=== PATIENT | male | born 1990 | race Caucasian/White ===

== ENCOUNTER 2016-06-24 08:36 | Emergency (ER) | payer SELFPAY ==
[2016-06-24 08:43] VITALS: BP 146/79
--- NOTE | 2016-06-24 10:12 | ED ---
Skin Complaint - HPI Summary HPI Summary: Patient has an area of irritation at the proximal end of a scar on his right forearm where he had a laceration repaired with deep absorbable and superficial stitches. He had the surface stitches removed weeks ago, and this new area appeared yesterday. He has not noticed fever, streaking, or drainage. There is a small scab over the pea size area. No known new trauma. - History of Current Complaint Chief Complaint: EDGeneral Time Seen by Provider: 06/24/16 09:03 Stated Complaint: RIGHT ARM INFECTION Hx Obtained From: Patient Onset/Duration: Started Days Ago - 1 Skin Exposure Onset/Duration: Days Ago - 1 Timing: Constant Onset Severity: Mild Current Severity: Mild Skin Location: Arm - right forearm Character: Pain, Redness - pea size Aggravating Symptom(s): Touch Alleviating Symptom(s): Nothing Associated Signs & Symptoms: Tenderness Related History: Trauma - suture placement in deep tissue. 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 hernia repair Infectious Disease History: No Infectious Disease History: Denies: Hx Clostridium Difficile, Hx Hepatitis, Hx Human Immunodeficiency Virus (HIV), Hx of Known/Suspected MRSA, Hx Shingles, Hx Tuberculosis, Hx Known/ Suspected VRE, Hx Known/Suspected VRSA, History Other Infectious Disease, Traveled Outside the [place] in Last 30 Days - Family History Known Family History: Positive: Cardiac Disease, Hypertension - Social History Occupation: Employed Part-time Lives: With Family Alcohol Use: None Substance Use Type: Reports: None Hx Tobacco Use: Yes Smoking Status (MU): Heavy Every Day Tobacco Smoker Type: Cigarettes Amount Used/How Often: 2 cigs /day Have You Smoked in the Last Year: Yes Cessation Counseling: Patient Advised to Stop Review of Systems Negative: Fever, Chills Negative: Myalgia, Decreased ROM, Edema Positive: Other - well healed scar with pea size area of redness with scab on proximal end of scar All Other Systems Reviewed And Are Negative: Yes Physical Exam Triage Information Reviewed: Yes Vital Signs On Initial Exam: Initial Vitals Temp Pulse Resp BP Pulse Ox 97.7 F 80 20 146/79 99 06/24/16 08:39 06/24/16 08:39 06/24/16 08:39 06/24/16 08:39 06/24/16 08:39 Vital Signs Reviewed: Yes Appearance: Positive: Well-Appearing, No Pain Distress, Well-Nourished Skin: Positive: Warm, Skin Color Reflects Adequate Perfusion, Dry, Tender - well healed scar with pea size area of redness with scab on proximal end of scar , Soft Head/Face: Positive: Normal Head/Face Inspection Eyes: Positive: EOMI, YOLI, Conjunctiva Clear ENT: Positive: Hearing grossly normal Respiratory/Lung Sounds: Positive: Breath Sounds Present Cardiovascular: Positive: RRR Musculoskeletal: Positive: Strength/ROM Intact, Pain @ - well healed scar with pea size area of redness with scab on proximal end of scar that is mildly tender to palp.. Negative: Edema Right Neurological: Positive: Sensory/Motor Intact, Alert, Oriented to Person Place, Time, NV Bundle Intact Distally Psychiatric: Positive: Affect/Mood Appropriate AVPU Assessment: Alert Diagnostics - Vital Signs Vital Signs Temp Pulse Resp BP Pulse Ox 06/24/16 08:39 97.7 F 80 20 146/79 99 - Laboratory Lab Statement: Any lab studies that have been ordered have been reviewed, and results considered in the medical decision making process. Course/Dx - Differential Diagnoses - Skin Complaint Differential Diagnoses: Abscess, Cellulitis, Contact Dermatitis, Drug Rash, Foreign Body, Local Allergic Reaction, MRSA, Urticaria - Diagnoses Provider Diagnoses: Postoperative stitch abscess Discharge - Discharge Plan Condition: Stable Disposition: HOME Additional Instructions: You appear to be having a reaction to one of the deep stitches from your laceration repair. Use soap and water to clean the area and apply antibiotic ointment for the next two days. Leave the area open to air otherwise. Use ibuprofen for pain control. Return to the emergency department if you notice increased redness or red streaking up your arm, and/or develop a temperature of 100.4 or greater, or if your symptoms worsen in general.
== END 2016-06-24 11:28 | disposition home or self-care (01) ==
LOC: ED 08:36
DX: L76.82 Other postprocedural complications of skin and subcutaneous tissue (principal); T81.4XXA Infection following a procedure, initial encounter; L02.413 Cutaneous abscess of right upper limb; F17.210 Nicotine dependence, cigarettes, uncomplicated
CPT/HCPCS: 99281

== ENCOUNTER 2017-04-27 11:54 | Emergency (ER) | payer BC ==
--- NOTE | 2017-04-27 12:36 | RAD ---
HISTORY: Right wrist pain COMPARISONS: Right hand dated May 20, 2010 VIEWS: 3, Frontal, lateral, and oblique views of the right wrist FINDINGS: BONE DENSITY: Normal. BONES: There is no displaced fracture. JOINTS: There is no arthropathy. ALIGNMENT: There is no dislocation. SOFT TISSUES: Unremarkable. OTHER FINDINGS: None. IMPRESSION: NO ACUTE OSSEOUS INJURY. IF SYMPTOMS PERSIST, RECOMMEND REPEAT IMAGING.
--- NOTE | 2017-04-27 12:43 | ED ---
Upper Extremity Pain - HPI Summary HPI Summary: 26M presents with right wrist pain that has been gradually getting worst. He states he had a laceration to right forearm many months ago that started the issues with his wrist. He went to PT which seemed to help. He denies any new injury. He denies any swelling to joint. Pain is greatest on volvar and ulnar aspect of right wrist. He admits to occasionally numbness and tingling. He has ROM of his wrist it just hurts. He has been taking ibuprofen for pain. He is right handed. He works in a machine shop. 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 hernia repair Infectious Disease History: No Infectious Disease History: Denies: Hx Clostridium Difficile, Hx Hepatitis, Hx Human Immunodeficiency Virus (HIV), Hx of Known/Suspected MRSA, Hx Shingles, Hx Tuberculosis, Hx Known/ Suspected VRE, Hx Known/Suspected VRSA, History Other Infectious Disease, Traveled Outside the [place] in Last 30 Days - Family History Known Family History: Positive: Cardiac Disease, Hypertension - Social History Alcohol Use: Occasionally Substance Use Type: Reports: None Hx Tobacco Use: Yes Smoking Status (MU): Light Every Day Tobacco Smoker Type: Cigarettes Amount Used/How Often: 2 cigs /day Have You Smoked in the Last Year: Yes Review of Systems Negative: Fever Negative: Chest Pain Negative: Shortness Of Breath Positive: Myalgia - right wrist pain All Other Systems Reviewed And Are Negative: Yes Physical Exam Triage Information Reviewed: Yes Vital Signs On Initial Exam: Initial Vitals Temp Pulse Resp BP Pulse Ox 97.3 F 70 16 144/80 96 04/27/17 11:57 04/27/17 11:57 04/27/17 11:57 04/27/17 11:57 04/27/17 11:57 Vital Signs Reviewed: Yes Appearance: Positive: Well-Appearing Skin: Positive: Warm, Dry Head/Face: Positive: Normal Head/Face Inspection Eyes: Positive: Normal, Conjunctiva Clear Respiratory/Lung Sounds: Positive: Clear to Auscultation, Breath Sounds Present Cardiovascular: Positive: Normal, RRR Musculoskeletal: Positive: Limited @ - right wrist, Other - good pulses, capillary refill<2 secs, able to oppose all finger, pos tinels test, good cover maker strength, neg John. Negative: Edema Right Neurological: Positive: Normal Psychiatric: Positive: Normal - Светлана Coma Scale Coma Scale Total: 15 Diagnostics - Vital Signs Vital Signs Temp Pulse Resp BP Pulse Ox 04/27/17 11:57 97.3 F 70 16 144/80 96 - Laboratory Lab Statement: Any lab studies that have been ordered have been reviewed, and results considered in the medical decision making process. - Radiology wrist Xray Interpretation: No Acute Changes Radiology Interpretation Completed By: Radiologist Course/Dx - Course Course Of Treatment: 26M presents with right wrist pain that has been gradually getting worst. He states he had a laceration to right forearm many months ago that started the issues with his wrist. He went to PT which seemed to help. He denies any new injury. He denies any swelling to joint. Pain is greatest on volvar and ulnar aspect of right wrist. He admits to occasionally numbness and tingling. He has ROM of his wrist it just hurts. He has been taking ibuprofen for pain. on exam good cover maker strength, neurovascular intact. pos tinels test. able to oppose all finger. neg John. wrist xray normal. will treat with cock up splint for possible carpel tunnel. gave referral for ortho. patient understand and agrees with plan. - Diagnoses Differential Diagnosis/HQI/PQRI: Positive: Fracture (Closed), Strain, Sprain Provider Diagnoses: Right wrist pain Discharge - Discharge Plan Condition: Good Disposition: HOME Patient Education Materials: Wrist Sprain (ED) Forms: *Work Release Referrals: [facility] [Outside] Rosa Muñoz MD [Medical Doctor] - Additional Instructions: Your symptoms seem to be consistent with carpel tunnel Keep splint on area Follow up with ortho Take Tylenol or ibuprofen every 6 hours Ice Return to ED if develop any new or worsening symptoms
[2017-04-27 13:20] VITALS: BP 141/82
== END 2017-04-27 13:19 | disposition home or self-care (01) ==
LOC: ED 11:54
DX: M25.531 Pain in right wrist (principal); F17.210 Nicotine dependence, cigarettes, uncomplicated
CPT/HCPCS: 99282

== ENCOUNTER 2017-08-29 07:02 | Emergency (ER) | payer BC ==
[2017-08-29] MEDS ORDERED: Ketorolac INJ* 60 MG/2 ML VIAL IM ONE (07:48)
[2017-08-29] MEDS ORDERED: Ketorolac INJ* 60 MG/2 ML VIAL ONE (07:50)
--- NOTE | 2017-08-29 08:22 | RAD ---
INDICATION: Left shoulder injury. TECHNIQUE: 4 views of the left shoulder were obtained. FINDINGS: The bones are in normal alignment. There is a small calcific density adjacent to the inferior glenoid process of the scapula. No other focal osseous abnormalities are seen. Joint spaces appear maintained. IMPRESSION: SMALL CALCIFIC DENSITY ADJACENT TO THE INFERIOR GLENOID PROCESS OF THE SCAPULA POSSIBLY REPRESENTING A SMALL FRACTURE FRAGMENT, AGE INDETERMINATE.
[2017-08-29 08:37] VITALS: BP 149/95
--- NOTE | 2017-08-29 08:44 | ED ---
Mauricio Pitts Stephanie, scribed for Marquis Welch MD on 08/29/17 at 0819 . Upper Extremity Pain - HPI Summary HPI Summary: The pt is a 27 y/o M presenting to the ED with c/o L shoulder pain that began on 08/27/17. The pt states he believed the pain was due to soreness after exercise however, the pain has progressively gotten worse since 08/27/17. Symptoms include limited ROM in L arm, pain in L shoulder joint and L clavicle. He states he attempted to treat his pain with ice but his pain persists. - History of Current Complaint Chief Complaint: EDExtremityUpper Stated Complaint: LT SHOULDER INJURY Time Seen by Provider: 08/29/17 07:46 Hx Obtained From: Patient Mechanism Of Injury: Other - exercise Onset/Duration: Started Days Ago - 2, Still Present, Worse Since - progressively became worse since onset Timing: Constant Severity Currently: Moderate Pain Location: Collar - L, Shoulder - L, Arm - L along bicep and tricep Aggravating Factor(s): Movement Alleviating Factor(s): Nothing Associated Signs & Symptoms: Positive: Other - limited ROM in L arm, pain in L shoulder joint and L clavicle - Allergies/Home Medications Allergies/Adverse Reactions: Allergies Allergy/AdvReac Type Severity Reaction Status Date / Time bee venom protein (honey bee) Allergy Severe Anaphylatic Verified 08/29/17 07:09 Shock nuts Allergy Severe Airway Uncoded 08/29/17 07:09 Obstruction PMH/Surg Hx/FS Hx/Imm Hx Endocrine/Hematology History: Denies: Hx Diabetes, Hx Thyroid Disease Cardiovascular History: 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 hernia repair Infectious Disease History: No Infectious Disease History: Denies: Hx Clostridium Difficile, Hx Hepatitis, Hx Human Immunodeficiency Virus (HIV), Hx of Known/Suspected MRSA, Hx Shingles, Hx Tuberculosis, Hx Known/ Suspected VRE, Hx Known/Suspected VRSA, History Other Infectious Disease, Traveled Outside the [place] in Last 30 Days - Family History Known Family History: Positive: Cardiac Disease, Hypertension - Social History Occupation: Employed Part-time Lives: Alone Alcohol Use: Occasionally Substance Use Type: Reports: None Hx Tobacco Use: Yes Smoking Status (MU): Light Every Day Tobacco Smoker Type: Cigarettes Amount Used/How Often: 2 cigs /day Have You Smoked in the Last Year: Yes Review of Systems Negative: Fever Positive: Other - L UE pain at shoulder, L clavacle pain All Other Systems Reviewed And Are Negative: Yes Physical Exam - Summary Physical Exam Summary: General: well-appearing, no pain distress Skin: warm, color reflects adequate perfusion, dry Head: normal Eyes: EOMI, YOLI ENT: normal Neck: supple, nontender Respiratory: CTA, breath sounds present Cardiovascular: RRR Abdomen: soft, nontender Bowel: present Musculoskeletal: tender to palpation in L shoulder joint. Pt declines ROM secondary to pain in joint. Scapula nontender. Elbow, wrist, and fingers are normal. Neurological: normal, sensory/motor intact, A&O x3 Psychological: affect/mood appropriate Triage Information Reviewed: Yes Vital Signs On Initial Exam: Initial Vitals Temp Pulse Resp BP Pulse Ox 96.3 F 78 16 160/94 97 08/29/17 07:09 08/29/17 07:09 08/29/17 07:09 08/29/17 07:09 08/29/17 07:09 Vital Signs Reviewed: Yes Diagnostics - Vital Signs Vital Signs Temp Pulse Resp BP Pulse Ox 08/29/17 07:09 96.3 F 78 16 160/94 97 - Laboratory Lab Statement: Any lab studies that have been ordered have been reviewed, and results considered in the medical decision making process. - Radiology Shoulder XRay Xray Interpretation: Positive (See Comments) Radiology Interpretation Completed By: Radiologist - SMALL CALCIFIC DENSITY ADJACENT TO THE INFERIOR GLENOID PROCESS OF THE SCAPULA POSSIBLY REPRESENTING A SMALL FRACTURE FRAGMENT, AGE INDETERMINATE. Re-Evaluation - Re-Evaluation First Eval Re-Evaluation Time: 08:19 Change: Unchanged - ED physician discusses pain management and discharge plan with the pt. The pt understands and agrees with discharge. Course/Dx - Course Course Of Treatment: BP noted and advised to follow up with PCP. DISCUSSED X- RAY RESULTS WITH THE PATIENT. DISCUSSED MAINTAINING ROM. F/U PMD/SPORTS MEDICINE. RETURN IF WORSE. - Diagnoses Provider Diagnoses: Elevated blood pressure reading without diagnosis of hypertension, Left shoulder pain, Injury of left rotator cuff Discharge - Sign-Out/Discharge Documenting (check all that apply): Discharge - Discharge Plan Condition: Stable Disposition: HOME Prescriptions: HYDROcodone/ACETAMIN 5-325 MG* [[place] 5-325 TAB*] 1 tab PO Q4H PRN #30 tab MDD 6 PRN Reason: Pain Patient Education Materials: Rotator Cuff Injury (ED), Shoulder Sprain (ED) Referrals: [facility] [Outside] [facility] [Outside] Additional Instructions: FOLLOW UP WITH YOUR PRIMARY CARE DOCTOR AND SPORTS MEDICINE. PERFORM THE RANGE OF MOTION EXERCISES DIRECTED TO HELP AVOID A FROZEN SHOULDER. RETURN TO THE EMERGENCY DEPARTMENT FOR ANY WORSENING OF YOUR CONDITION OR QUESTIONS OR CONCERNS. YOUR BLOOD PRESSURE WAS ELEVATED TODAY; FOLLOW UP WITH YOUR PRIMARY CARE DOCTOR WITHIN ONE WEEK. - Billing Disposition and Condition Condition: STABLE Disposition: HOME The documentation as recorded by the Mauricio haley Stephanie accurately reflects the service I personally performed and the decisions made by me, Marquis Welch MD.
== END 2017-08-29 08:38 | disposition home or self-care (01) ==
LOC: ED 07:02
DX: S49.92XA Unspecified injury of left shoulder and upper arm, initial encounter (principal); M25.512 Pain in left shoulder; F17.210 Nicotine dependence, cigarettes, uncomplicated; R03.0 Elevated blood-pressure reading, without diagnosis of hypertension; X58.XXXA Exposure to other specified factors, initial encounter; Y92.9 Unspecified place or not applicable
CPT/HCPCS: 96372; 96374; 99282; J1885

== ENCOUNTER 2018-04-17 09:03 | Emergency (ER) | payer BC ==
[2018-04-17 09:10] VITALS: BP 143/85
--- NOTE | 2018-04-17 10:00 | UC ---
Ear Complaint HPI - HPI Summary HPI Summary: 27 yo male presents with right ear pain, sinus pain/pressure/congestion, and intermittently productive cough for the last 3-4 days getting progressively worse. He has been taking ibuprofen and mucinex OTC with mild relief for a short time. He denies fever, chills, SOB. - History of Current Complaint Chief Complaint: UCRespiratory Stated Complaint: EAR PAIN Time Seen by Provider: 04/17/18 09:54 Hx Obtained From: Patient Onset/Duration: Gradual Onset Severity Initially: Moderate Severity Currently: Severe Pain Intensity: 7 Pain Scale Used: 0-10 Numeric - Allergies/Home Medications Allergies/Adverse Reactions: Allergies Allergy/AdvReac Type Severity Reaction Status Date / Time bee venom protein (honey bee) Allergy Severe Anaphylatic Verified 04/17/18 09:11 Shock nuts Allergy Severe Airway Uncoded 04/17/18 09:11 Obstruction PMH/Surg Hx/FS Hx/Imm Hx - Additional Past Medical History Additional PMH: None - Surgical History Surgical History: Yes Surgery Procedure, Year, and Place: knee surgery. hernia repair - Family History Known Family History: Positive: Cardiac Disease, Hypertension - Social History Occupation: Employed Full-time Lives: With Family Alcohol Use: Occasionally Substance Use Type: None Smoking Status (MU): Light Every Day Tobacco Smoker Type: Cigarettes Amount Used/How Often: 2 cigs /day Have You Smoked in the Last Year: Yes When Did the Patient Quit Smoking/Using Tobacco: 2 months ago Household Exposure Type: Cigarettes - Immunization History Most Recent Influenza Vaccination: utd Most Recent Tetanus Shot: utd Most Recent Pneumonia Vaccination: never Review of Systems Constitutional: Negative Skin: Negative Eyes: Negative ENT: Ear Ache, Sinus Congestion, Sinus Pain/Tenderness Respiratory: Cough Cardiovascular: Negative Gastrointestinal: Negative Neurovascular: Negative Neurological: Negative Psychological: Negative All Other Systems Reviewed And Are Negative: Yes Physical Exam - Summary Physical Exam Summary: GENERAL: NAD. WDWN. No pain distress. SKIN: No rashes, sores, lesions, or open wounds. HEENT: Head: AT/NC Eyes: EOM intact. Conjunctiva clear without inflammation or discharge. Ears: Hearing grossly normal. RIGHT TM with mild erythema and bulging. No canal edema or drainage. Nose: Nasal mucosa mildly swollen and erythematous with yellow discharge. TTP maxillary and frontal sinus. Positive post nasal drip Throat: Posterior oropharynx without exudates, erythema, or tonsillar enlargement. Uvula midline. NECK: Supple. Nontender. No lymphadenopathy. CHEST: Mild wheezing throughout. No accessory muscle use. Breathing comfortably and in no distress. CV: RRR. Without m/r/g. Pulses intact. NEURO: Alert. PSYCH: Age appropriate behavior. Triage Information Reviewed: Yes Vital Signs: Initial Vital Signs Temp 98.1 F 04/17/18 09:07 Pulse 78 04/17/18 09:07 Resp 18 04/17/18 09:07 BP 143/85 04/17/18 09:07 Pulse Ox 100 04/17/18 09:07 Vital Signs Reviewed: Yes Ear Complaint Course/Dx - Course Course Of Treatment: Sinusitis. Right otitis media. Bronchitis. Will start him with Augmentin and advised to continue ibuprofen and mucinex and to cut back on smoking. - Differential Dx/Diagnosis Provider Diagnoses: Sinusitis. Right otitis media. Bronchitis. Discharge - Sign-Out/Discharge Documenting (check all that apply): Patient Departure All imaging exams completed and their final reports reviewed: No Studies - Discharge Plan Condition: Stable Disposition: HOME Prescriptions: Amoxicillin/Clavulanate TAB* [Augmentin TAB 875*] 875 mg PO BID #20 tab Patient Education Materials: Sinusitis (ED) Forms: *Work Release Referrals: No Primary Care Phys,NOPCP [Primary Care Provider] - Additional Instructions: If you develop a fever, shortness of breath, chest pain, new or worsening symptoms - please call your PCP or go to the ED. Your blood pressure was high at todays visit. Please see your primary provider within 4 weeks for recheck and re-evaluation. - Billing Disposition and Condition Condition: STABLE Disposition: Home
== END 2018-04-17 10:11 | disposition home or self-care (01) ==
LOC: UCEAST 09:03
DX: H66.91 Otitis media, unspecified, right ear (principal); J40 Bronchitis, not specified as acute or chronic; J32.9 Chronic sinusitis, unspecified; F17.210 Nicotine dependence, cigarettes, uncomplicated; Z91.030 Bee allergy status; Z91.018 Allergy to other foods
CPT/HCPCS: 99212; G0463

== ENCOUNTER 2018-06-18 07:12 | Emergency (ER) | payer BC ==
[2018-06-18 07:22] VITALS: BP 151/95
--- NOTE | 2018-06-18 07:46 | UC ---
Dental HPI - HPI Summary HPI Summary: 27-year-old male comes in to clinic today with a chief complaint of dental injury. 2 days ago he was holding his son when his son swung his head back and struck him in the lower jaw. He had pain right away from the lower front teeth. The last 2 days there is been more gingival swelling in the pains getting worse. He is not worried that his jaw is broken as the rest of his jaw does not hurt is just where the teeth are in the front lower area. He has been using some mouth wash which helps some. Chewing makes it worse. One of the teeth feels a little loose. - History of Current Complaint Chief Complaint: UCDentalProblem Stated Complaint: MOUTH INJURY Time Seen by Provider: 06/18/18 07:34 Pain Intensity: 7 - Allergies/Home Medications Allergies/Adverse Reactions: Allergies Allergy/AdvReac Type Severity Reaction Status Date / Time bee venom protein (honey bee) Allergy Severe Anaphylatic Verified 06/18/18 07:22 Shock nuts Allergy Severe Airway Uncoded 06/18/18 07:22 Obstruction Home Medications: Home Medications Ibuprofen 600 mg PO ONCE PRN 06/18/18 [History Confirmed 06/18/18] PMH/Surg Hx/FS Hx/Imm Hx Previously Healthy: Yes - Surgical History Surgical History: Yes Surgery Procedure, Year, and Place: knee surgery. hernia repair. arm stitches - Family History Known Family History: Positive: Cardiac Disease, Hypertension - Social History Alcohol Use: Occasionally Substance Use Type: None Smoking Status (MU): Light Every Day Tobacco Smoker Type: Cigarettes Amount Used/How Often: 4 cigs /day Have You Smoked in the Last Year: Yes When Did the Patient Quit Smoking/Using Tobacco: 2 months ago Household Exposure Type: Cigarettes - Immunization History Most Recent Influenza Vaccination: utd Most Recent Tetanus Shot: utd Most Recent Pneumonia Vaccination: never Review of Systems All Other Systems Reviewed And Are Negative: Yes Constitutional: Positive: Negative Skin: Positive: Negative Eyes: Positive: Negative ENT: Positive: Dental Pain. Negative: Sore Throat Respiratory: Positive: Negative Cardiovascular: Positive: Negative Gastrointestinal: Positive: Negative Motor: Positive: Negative Neurovascular: Positive: Negative Musculoskeletal: Positive: Negative Neurological: Positive: Negative Psychological: Positive: Negative Is Patient Immunocompromised?: No Physical Exam Triage Information Reviewed: Yes Appearance: Well-Appearing, Well-Nourished, Pain Distress - mild Vital Signs: Initial Vital Signs Temp 98.8 F 06/18/18 07:18 Pulse 64 06/18/18 07:18 Resp 18 06/18/18 07:18 BP 151/95 06/18/18 07:18 Pulse Ox 99 06/18/18 07:18 Vital Signs Reviewed: Yes Eye Exam: Normal Eyes: Positive: Conjunctiva Clear ENT: Positive: Pharynx normal. Negative: Nasal congestion, Nasal drainage Dental: Positive: Other: - On examination the patient's mandible is nontender to palpation. Good good range of motion of the jaw. His lower anterior incisors have gingival swelling at the bases. This area is tender to palpation. The tongue is intact with full range of motion. No obvious tongue injury. Oropharynx open. Neck exam: Normal Neck: Positive: Supple Respiratory: Positive: No respiratory distress Musculoskeletal Exam: Normal Musculoskeletal: Positive: Strength Intact, ROM Intact Neurological Exam: Normal Neurological: Positive: Alert, Muscle Tone Normal Psychological Exam: Normal Psychological: Positive: Age Appropriate Behavior Skin Exam: Normal Dental Complaint Course/Dx - Course Course Of Treatment: Based on examination and history I am not concerned about a fractured mandible. He does have some dental injury and gingival swelling. There may be some infection complicating the picture. I encouraged further mouth washing and Orajel. Started on antibiotic and pain medications. Follow- up with his dentist. Reevaluation if not improved or worsening. - Differential Dx/Diagnosis Provider Diagnosis: Dental trauma Discharge - Sign-Out/Discharge Documenting (check all that apply): Patient Departure All imaging exams completed and their final reports reviewed: No Studies - Discharge Plan Condition: Stable Disposition: HOME Prescriptions: Amoxicillin/Clavulanate TAB* [Augmentin TAB 875*] 875 mg PO BID #20 tab HYDROcodone/ACETAMIN 5-325 MG* [[place] 5-325 TAB*] 1 tab PO Q4H PRN #20 tab MDD 6 PRN Reason: Pain Patient Education Materials: Acute Dental Trauma (ED), Toothache (ED) Forms: *Work Release Referrals: [facility] [place] [facility] REFERRAL [Outside] Additional Instructions: FOLLOW UP WITH YOUR DOCTOR IF NOT COMPLETELY IMPROVED. GET RECHECKED FOR ANY WORSENING OF YOUR CONDITION OR QUESTIONS OR CONCERNS. - Billing Disposition and Condition Condition: STABLE Disposition: Home
== END 2018-06-18 07:53 | disposition home or self-care (01) ==
LOC: UCEAST 07:12
DX: S09.93XA Unspecified injury of face, initial encounter (principal); W50.0XXA Accidental hit or strike by another person, initial encounter; Y93.89 Activity, other specified; Y92.9 Unspecified place or not applicable; F17.210 Nicotine dependence, cigarettes, uncomplicated
CPT/HCPCS: 99212; G0463

== ENCOUNTER 2018-09-13 09:20 | Emergency (ER) | payer BC ==
[2018-09-13 09:32] VITALS: BP 135/91
--- NOTE | 2018-09-13 09:56 | UC ---
Abdominal Pain Male HPI - HPI Summary HPI Summary: abdominal pain / cramps x 1 day pain is diffused, 3 out of 10 , no radiation + nausea , vomiting, no diarrhea, no constipation , no urinary sx no fever, + chills nasal congestion, cough , pnd , no sore throat - History of Current Complaint Chief Complaint: UCGeneralIllness Stated Complaint: SORE THROAT HEAD CONGESTION VOMITING Time Seen by Provider: 09/13/18 09:42 Hx Obtained From: Patient Onset/Duration: Gradual Onset, Lasting Days - 1, Still Present Timing: Constant Severity Initially: Moderate Severity Currently: Moderate Pain Intensity: 0 Location: Diffuse Radiates: No Character: Cramping Aggravating Factor(s): Nothing Alleviating Factor(s): Nothing Associated Signs And Symptoms: Positive: Cough, Nausea, Vomiting. Negative: Diaphoresis, Fever, Chest Pain, Dizzy, Back Pain, Constipation, Blood in Stool, Urinary Symptoms, Decreased Appetite, Diarrhea - Allergies/Home Medications Allergies/Adverse Reactions: Allergies Allergy/AdvReac Type Severity Reaction Status Date / Time bee venom protein (honey bee) Allergy Severe Anaphylatic Verified 09/13/18 09:26 Shock nuts Allergy Severe Airway Uncoded 09/13/18 09:26 Obstruction Home Medications: Home Medications Ibuprofen TAB* [Motrin TAB* 600 MG] 600 mg PO ONCE PRN 09/13/18 [History Confirmed 09/13/18] PMH/Surg Hx/FS Hx/Imm Hx Previously Healthy: Yes - Surgical History Surgical History: Yes Surgery Procedure, Year, and Place: R knee surgery. inguinal hernia repair. arm stitches (60) - Family History Known Family History: Positive: Cardiac Disease, Hypertension - Social History Alcohol Use: Rare Substance Use Type: None Smoking Status (MU): Light Every Day Tobacco Smoker Type: Cigarettes Amount Used/How Often: 4 cigs /day Have You Smoked in the Last Year: Yes When Did the Patient Quit Smoking/Using Tobacco: 2 months ago Household Exposure Type: Cigarettes - Immunization History Most Recent Influenza Vaccination: utd Most Recent Tetanus Shot: utd Most Recent Pneumonia Vaccination: never Review of Systems All Other Systems Reviewed And Are Negative: Yes Constitutional: Positive: Chills Skin: Positive: Negative Eyes: Positive: Negative ENT: Positive: Nasal Discharge Respiratory: Positive: Cough Cardiovascular: Positive: Negative Gastrointestinal: Positive: Abdominal Pain, Vomiting, Nausea. Negative: Diarrhea Genitourinary: Positive: Negative Is Patient Immunocompromised?: No Physical Exam Triage Information Reviewed: Yes Appearance: Well-Appearing, No Pain Distress, Well-Nourished Vital Signs: Initial Vital Signs Temp 98 F 09/13/18 09:28 Pulse 89 09/13/18 09:28 Resp 16 09/13/18 09:28 BP 135/91 09/13/18 09:28 Pulse Ox 99 09/13/18 09:28 Vital Signs Reviewed: Yes Eye Exam: Normal Eyes: Positive: Conjunctiva Clear ENT: Positive: Normal ENT inspection, Hearing grossly normal, Pharyngeal erythema, Nasal congestion, Nasal drainage, TMs normal. Negative: TM bulging, TM dull, TM red, Tonsillar swelling, Tonsillar exudate Neck exam: Normal Neck: Positive: Supple, Nontender, No Lymphadenopathy Respiratory: Positive: Chest non-tender, Lungs clear, Normal breath sounds Cardiovascular: Positive: RRR, No Murmur Abdomen Description: Positive: Nontender, Soft. Negative: CVA Tenderness (R), CVA Tenderness (L), Distended, Guarding Bowel Sounds: Positive: Present Abd Pain Male Course/Dx - Differential Dx/Clinical Impression Provider Diagnosis: Viral respiratory illness, Gastritis Discharge - Sign-Out/Discharge Documenting (check all that apply): Patient Departure All imaging exams completed and their final reports reviewed: No Studies - Discharge Plan Condition: Stable Disposition: HOME Prescriptions: Ondansetron ODT TAB* [Zofran 4 MG Odt TAB*] 8 mg PO Q8H PRN #6 tab.odt PRN Reason: Nausea/Vomiting Patient Education Materials: Viral Syndrome (ED) Forms: *Work Release Referrals: No Primary Care Phys,NOPCP [Primary Care Provider] - If Needed - Billing Disposition and Condition Condition: STABLE Disposition: Home
== END 2018-09-13 09:59 | disposition home or self-care (01) ==
LOC: UCEAST 09:20
DX: J06.9 Acute upper respiratory infection, unspecified (principal); K29.70 Gastritis, unspecified, without bleeding; F17.210 Nicotine dependence, cigarettes, uncomplicated
CPT/HCPCS: 99212; G0463

== ENCOUNTER 2019-08-15 12:51 | Emergency (ER) | payer BC, OTHER ==
[2019-08-15 14:26] VITALS: BP 135/77
--- NOTE | 2019-08-15 15:38 | UC ---
Ear Complaint HPI - HPI Summary HPI Summary: 28 y/o male presents to the urgent care c/o right ear pain since this morning. Pt reports symptoms started about 2 days ago, with low grade fever dry cough and sinus congestion and clear nasal discharge. Pain is 6/10. She has taken OTC medication so alleviate symptoms. Pt denies dizziness, SOB, chest congestion, chest pain, abdominal pain, N/V/D. Pt also denies recent travel outside the country. - History of Current Complaint Chief Complaint: UCEar Stated Complaint: EAR PAIN Time Seen by Provider: 08/15/19 15:36 Hx Obtained From: Patient Onset/Duration: Gradual Onset, Lasting Days - 5 days w/ nasal congestion and clear nasal discharge, Still Present, Worse Since - yesterdeay w/ RT ear pain Severity Initially: Mild Severity Currently: Moderate Pain Intensity: 6 - RT ear pain Pain Scale Used: 0-10 Numeric Alleviating Factors: OTC Meds Associated Signs/Symptoms: Positive: URI Symptoms - Allergies/Home Medications Allergies/Adverse Reactions: Allergies Allergy/AdvReac Type Severity Reaction Status Date / Time bee venom protein (honey bee) Allergy Severe Anaphylatic Verified 08/15/19 14:26 Shock nuts Allergy Severe Airway Uncoded 08/15/19 14:26 Obstruction Home Medications: Home Medications Amoxicillin PO (*) [Amoxicillin 875 MG (*)] 875 mg PO BID #20 tab 08/15/19 [Rx] PMH/Surg Hx/FS Hx/Imm Hx Previously Healthy: Yes - Pt denies PMHX - Surgical History Surgical History: Yes Surgery Procedure, Year, and Place: R knee surgery. inguinal hernia repair. arm stitches (60) - Family History Known Family History: Positive: Cardiac Disease, Hypertension - Social History Occupation: Employed Full-time Lives: With Family Alcohol Use: Rare Substance Use Type: None Smoking Status (MU): Light Every Day Tobacco Smoker Type: Cigarettes Amount Used/How Often: 2 cigs /day Have You Smoked in the Last Year: Yes When Did the Patient Quit Smoking/Using Tobacco: 2 months ago Household Exposure Type: Cigarettes - Immunization History Most Recent Influenza Vaccination: utd Most Recent Tetanus Shot: utd Most Recent Pneumonia Vaccination: never Review of Systems All Other Systems Reviewed And Are Negative: Yes Constitutional: Positive: Negative Skin: Positive: Negative Eyes: Positive: Negative ENT: Positive: Ear Ache - left ear pain, Nasal Discharge - clear, Sinus Congestion Respiratory: Positive: Negative Cardiovascular: Positive: Negative Gastrointestinal: Positive: Negative Genitourinary: Positive: Negative Motor: Positive: Negative Neurovascular: Positive: Negative Musculoskeletal: Positive: Negative Neurological/Mental Status: Positive: Negative Psychological: Positive: Negative Is Patient Immunocompromised?: No Physical Exam - Summary Physical Exam Summary: Vital signs: reviewed General: well developed, well nourished male sitting in the examining table w/o any apparent distress Skin: [place], warm and dry, no evidence of atopic dermatitis, psoriasis, seborrhea. HEENT: -Head: atraumatic, non tender; no scalp dermatitis. -Eyes: sclera and conjunctiva clear, PERRLA, EOMI -Ears: no pre- or postauricular lymphadenopathy or erythema; B/L external ear canal clears, RT TM injected w/ erythema and yellowish drainage, LF TM WNL.with erythema and yellowish purulent discharge, No perforation. -Nose/Face: erythematous and edematous nasal mucosa with clear rhinorrhea, no frontal or maxillary sinus tender to palpation. -Mouth/Throat: Mucous membrane moist, posterior pharynx clear, no erythema or exudates. Neck: supple, FROM, nontender, no lymphadenopathy, no meningismus. Chest: Clear to auscultation, normal breath sounds Abd: soft, Bowel sounds active, Nontender. Back: no spinal or CVAT Neuro: A&O x4, GCS 15, no focal neuro deficits, normal behavior for age. Triage Information Reviewed: Yes Vital Signs: Initial Vital Signs Temp 99.9 F 08/15/19 14:22 Pulse 75 08/15/19 14:22 Resp 18 08/15/19 14:22 BP 135/77 08/15/19 14:22 Pulse Ox 98 08/15/19 14:22 Ear Complaint Course/Dx - Course Course Of Treatment: 28 y/o male presents to the urgent care c/o right ear pain since this morning. Pt reports symptoms started about 2 days ago, with low grade fever dry cough and sinus congestion and clear nasal discharge. Pain is 6/10. She has taken OTC medication so alleviate symptoms. Pt denies dizziness, SOB, chest congestion, chest pain, abdominal pain, N/V/D. Pt also denies recent travel outside the country. Hx obtained. Pt w/ RT otitis media and URI on examination. Pt Rx Amoxicillin PO. Pt given Ibuprofen PO by nurse to alleviate otalgia. Advised to continue taking it to alleviate symptoms. Also recommended if symptoms do not improve or worsen to return to the urgent care or f/u with PCP for further management. Mother understood and agreed with D/C plan - Differential Dx/Diagnosis Differential Diagnosis/HQI/PQRI: Bronchitis, Otitis Externa, Otitis Media, Perforated TM, Pharyngitis, URI Provider Diagnosis: Right otitis media, Upper respiratory infection Discharge ED - Sign-Out/Discharge Documenting (check all that apply): Patient Departure - D/c home All imaging exams completed and their final reports reviewed: No Studies - Discharge Plan Condition: Stable Disposition: HOME Prescriptions: Amoxicillin PO (*) [Amoxicillin 875 MG (*)] 875 mg PO BID #20 tab Patient Education Materials: Ear Infection (ED) Forms: *Work Release Referrals: [facility] [place] [facility] [Outside] - 3 Days Additional Instructions: 1- Please take the full course of the antibiotic to avoid resistance.Take yogurts w/ probiotics or Culturelle to protect your GI system 2-Please take ibuprofen PO q6-8hrs prn as instructed after meals to alleviate pain and swelling. Increase fluid intake, eat well, rest and avoid strenuous exercise 3-If symptoms do not improve or worsen please return to the urgent care or f/u with your PCP for further evaluation and treatment. - Billing Disposition and Condition Condition: STABLE Disposition: Home
[2019-08-15] MEDS ORDERED: Ibuprofen TAB* 400 MG PO ONE (15:57)
== END 2019-08-15 16:20 | disposition home or self-care (01) ==
LOC: UCEAST 12:51
DX: J06.9 Acute upper respiratory infection, unspecified (principal); H66.91 Otitis media, unspecified, right ear; F17.210 Nicotine dependence, cigarettes, uncomplicated; Z91.018 Allergy to other foods; Z91.030 Bee allergy status
CPT/HCPCS: 99212; A9270-GY; G0463